=== PATIENT | female | born 1960 | race Caucasian/White ===

== ENCOUNTER 2020-07-22 09:22 | Day surgery (SDC) | payer MEDICAID ==
[2020-07-22] VITALS (11 sets, daily range): BP systolic 108–143; BP diastolic 54–78
[~2020-07-22] VITALS: Ht 167.6 cm; Wt 113.2 kg
[2020-07-22] MEDS ORDERED: LORazepam 0.5 MG tablet PO PRN (09:45)
[2020-07-22] MEDS ORDERED: nitroGLYCERIN 0.4mg SUBLingual tab SL PRN ×2 (09:45→13:45)
[2020-07-22] MEDS ORDERED: diphenhydrAMINE 25mg capsule PO PRN (09:45)
[2020-07-22] MEDS ORDERED: normal saline 1,000 ML IV SCH (09:45)
[2020-07-22] MEDS ORDERED: LEVO50TA8 PO (10:20)
[2020-07-22] MEDS ORDERED: BUPR-317 PO (10:20)
[2020-07-22] MEDS ORDERED: HYDR50TA4 PO (10:20)
[2020-07-22] MEDS ORDERED: ASPI-1397 PO (10:20)
[2020-07-22] MEDS ORDERED: CITA40TA16 PO (10:20)
[2020-07-22] MEDS ORDERED: CARV3.122 PO (10:20)
[2020-07-22] MEDS ORDERED: ATOR-2 PO (10:20)
[2020-07-22] MEDS ORDERED: PRAS10TA10 PO (10:20)
[2020-07-22] MEDS ORDERED: MV-M1TAB45 PO (10:22)
[2020-07-22 10:45] LABS: TROPONIN I < 0.04 NG/ML (0.0-0.05)
[2020-07-22 11:00] LABS: HEMOGLOBIN A1C 5.9 % (4.5-6.2)
[2020-07-22] MEDS ORDERED: LIDOcaine 1% (10mg/ml)w/preservative injection 20ml MDV ONE (12:08)
[2020-07-22] MEDS ORDERED: fentaNYL/PF 50MCG/1 ML 2ML syringe ONE (12:08)
[2020-07-22] MEDS ORDERED: iohexol 350 MG/ML 50ML vial IV ONE (12:08)
[2020-07-22] MEDS ORDERED: iohexol 350MG/ML 100ml bottle IV ONE (12:08)
[2020-07-22] MEDS ORDERED: midazolam 1 mg/ML 2ml injection ONE ×2 (12:08→12:39)
[2020-07-22] MEDS ORDERED: proCHLORperazine 10 MG/2 ml inj ONE (12:44)
[2020-07-22] MEDS ORDERED: proCHLORperazine 10 MG/2 ml inj IV PRN (13:45)
[2020-07-22] MEDS ORDERED: HYDROcodone/acetaminophen 10/325mg tab PO PRN (13:45)
[2020-07-22] MEDS ORDERED: ondansetron 4mg rapidly disintigrating tab PO PRN (13:45)
[2020-07-22] MEDS ORDERED: HYDROcodone/acetaminophen 5mg/325mg tablet PO PRN (13:45)
[2020-07-22] MEDS ORDERED: OXAZEpam 15mg capsule PO PRN (13:45)
== END 2020-07-22 18:55 | disposition home or self-care (01) ==
LOC: SSTAY O 09:22
PROVIDERS: ATTEND Internal Medicine Cardiovascular Disease
DX: R94.39 Abnormal result of other cardiovascular function study (principal); I25.119 Atherosclerotic heart disease of native coronary artery with unspecified angina pectoris; E11.9 Type 2 diabetes mellitus without complications; E78.5 Hyperlipidemia, unspecified; I10 Essential (primary) hypertension; G47.33 Obstructive sleep apnea (adult) (pediatric); F32.9 Major depressive disorder, single episode, unspecified; F10.20 Alcohol dependence, uncomplicated; E66.9 Obesity, unspecified; Z68.41 Body mass index [BMI] 40.0-44.9, adult; Z72.89 Other problems related to lifestyle; Z90.710 Acquired absence of both cervix and uterus; Z98.890 Other specified postprocedural states; Z79.82 Long term (current) use of aspirin; Z79.899 Other long term (current) drug therapy; Z88.2 Allergy status to sulfonamides; Z87.891 Personal history of nicotine dependence; Z95.5 Presence of coronary angioplasty implant and graft; R06.02 Shortness of breath
CPT/HCPCS: 36415; 83036; 83880; 84484; 93458; 99152; C1760; C1769; J0780; J1644; J2001; J2250; J3010; J7030; Q0163; Q9967; A4620; A6258